=== PATIENT | male | born 1975 | race Caucasian/White ===

== ENCOUNTER 2018-11-26 14:39 | Emergency (ER) | payer MEDICARE ==
[~2018-11-26] VITALS: Ht 167.6 cm; Wt 104.1 kg
[2018-11-26 14:41] VITALS: Ht 167.6 cm; Wt 104.1 kg
[2018-11-26] MEDS ORDERED: PROPRANOLOL HCL20 MG PO (14:50)
[2018-11-26] MEDS ORDERED: GLUCOPHAGE500 MG PO (14:50)
[2018-11-26] MEDS ORDERED: LATUDA40 MG PO (14:50)
[2018-11-26] MEDS ORDERED: ROBAXIN500 MG PO (14:51)
[2018-11-26] MEDS ORDERED: NEURONTIN600 MG (14:51)
[2018-11-26] MEDS ORDERED: MINIPRESS 5 MG C5 MG PO (14:52)
[2018-11-26] MEDS ORDERED: ACETAMINOPHEN500 M1 PO (16:03)
[2018-11-26] MEDS ORDERED: CYCLOBENZAPRINE10 MG PO (16:03)
[2018-11-26] MEDS ORDERED: MEDROL DOSE PACK4 MG PO (16:03)
[2018-11-26 16:43] VITALS: BP 120/78
== END 2018-11-26 16:44 | disposition home or self-care (01) ==
LOC: D.ER 14:39
DX: R51 Headache (principal); T14.8XXA Other injury of unspecified body region, initial encounter; V42.5XXA Car driver injured in collision with two- or three-wheeled motor vehicle in traffic accident, initial encounter; Y92.410 Unspecified street and highway as the place of occurrence of the external cause